=== PATIENT | female | born 1970 | race Two or more races ===

== ENCOUNTER 2025-02-01 08:29 | Emergency (ER) | payer MEDICAID, SELFPAY ==
[2025-02-01 08:30] VITALS: BP 96/61; PULSE 62; RESP 16; TEMP 36.7; O2SAT 98
[2025-02-01 08:45] VITALS: BP 97/65; PULSE 64; RESP 17; TEMP 36.7; O2SAT 99
[2025-02-01 08:49] VITALS: PULSE 62; RESP 18; O2SAT 95; BMI 23.0
--- NOTE | 2025-02-01 08:55 | EDNOTE_ITS ---
ED Syncope RME/HPI General Chief Complaint: Syncope / Near Syncope Stated Complaint: SYNCOPE Time Seen by Provider: 02/01/25 08:44 Arrival date/time: 02/01/25 08:29 RME / HPI RME / HPI narrative: 54 year old female presents to the ED BIBA from work for evaluation after syncopal episode today. States she was standing at work when she suddenly began to feel ill and sat down on a chair. Says she doesn't recall what occurred after sitting and then woke up being surrounded by coworkers who told her she lost consciousness, unknown duration. States yesterday she had a cough and felt feverish. However, did not measure temperature at home. While in the ED complains of a frontal headache. Denies any history of similar syncopal episodes. Denies chest pain, cough, shortness of breath. Denies nausea, vomiting, diarrhea, constipation. Denies dysuria, urinary frequency and urgency. Related Data Allergies Allergy/AdvReac Type Severity Reaction Status Date / Time NKA Allergy Unknown Uncoded 05/16/03 21:42 Review of Systems Review of Systems Narrative Review of Systems: GEN: +feverish in the last 24 hours, no weight loss, +syncopal episode EYES: No discharge, no visual changes, no pain HEENT: No ear pain, no congestion, no sore throat PULM: No shortness of breath, + cough CV: No chest pain, no palpitations GI: No nausea, no vomiting, no diarrhea, no pain, no constipation : No frequency, no urgency, no dysuria MUSC/SKEL: No joint pain, no back pain SKIN: No rash NEURO: No weakness, no headache Past Medical History Past Medical History CARDIAC: Negative Congestive Heart Failure RESPIRATORY: Negative Chronic Obstructive Pulmonary Disease (COPD) GENITOURINARY: Negative Renal Disease ENDOCRINE: Negative Diabetes Mellitus Type 1 or Diabetes Mellitus Type 2 ED Exam Narrative Physical exam: GENERAL APPEARANCE: alert and oriented x 4, well-developed, well-nourished, no acute distress HEENT: Normocephalic, atraumatic; pupils equal, round, reactive to light; EOMI; mucous membranes pink, moist; oropharynx clear NECK: Supple LUNGS: CTABL; no wheezes, no rales, no rhonchi HEART: Regular rate, regular rhythm; normal S1, S2; no murmurs ABDOMEN: non distended; normal BS; soft, no tenderness, no guarding, no rebound; no masses, no organomegaly, no hernia BACK: no CVA tenderness EXTREMITIES: atraumatic; no edema NEUROLOGIC: awake; alert and oriented x4; cranial nerves II-XII grossly intact; no focal sensory or motor deficits PSYCHIATRIC: appropriate mood and affect SKIN: warm, dry, normal color; no rashes Course Quality Measures none Orders Category Date Time Status Bedside COVID-19 Antigen Test NOW Care 02/01/25 11:02 Active Bedside Influenza A&B Antigen Test NOW Care 02/01/25 11:02 Completed Turner Machine Operator NOW Care 02/01/25 09:25 Active EKG (ED ONLY) *Do not use* NOW Care 02/01/25 09:25 Completed Orthostatic Vitals NOW Care 02/01/25 11:52 Active EKG (ED Only) Stat Exams 02/01/25 09:25 Draft XR chest 1V portable Stat Exams 02/01/25 09:25 Completed B-Type Natriuretic Peptide Stat Lab 02/01/25 09:44 Completed CBC Stat Lab 02/01/25 09:44 Completed Comprehensive Metabolic Panel Stat Lab 02/01/25 09:44 Completed Lipase Stat Lab 02/01/25 09:44 Completed Magnesium Stat Lab 02/01/25 09:44 Completed Partial Thromboplastin Time Stat Lab 02/01/25 09:44 Completed Prothrombin Time with INR Stat Lab 02/01/25 09:44 Completed Troponin I Stat Lab 02/01/25 09:44 Completed Sodium Chloride 0.9% 1000 ml [Ns] 1,000 ml Med 02/01/25 09:26 Discontinued IV 999 mls/hr Vital Signs Vital signs: Vital Signs Temperature 98.1 F 02/01/25 08:30 Pulse Rate 62 02/01/25 08:30 Respiratory Rate 16 02/01/25 08:30 Blood Pressure 96/61 02/01/25 08:30 Pulse Oximetry (%) 98 02/01/25 08:30 Oxygen Delivery Method Room Air 02/01/25 08:30 Pulse ox is 99% on room air which is adequate. Syncope MDM Narrative MDM Narrative:: Brenna Molina am scribing for and in the presence of Dr. Mason. Patient data External records reviewed:: EMS form Clinical information provided by:: patient and EMS Social determinants that could affect healthcare access:: none Patient has the following chronic illnesses:: None reported How is presenting disease/condition affected by chronic disease/condition?: no chronic disease Evaluation data The following diagnostics were reviewed and interpreted by me:: lab results, radiology exam(s) and EKG tracing(s) (EKG @ 09: 47 am. Interpreted by me shows sinus rhythm, rate 63, RSR in V1 and V2, no STEMI. ) Lab and/or radiology exams considered but not ordered:: None Interpretation Summary: Ordering Physician: Mari Mason MD Date of Service: 02/01/25 Procedure(s): XR chest 1V portable Accession Number(s): [id number] cc: Niko Rodriguez MD; Eliseo Choi MD; Mari Mason MD~ Examination: AP chest single view Technique one AP portable upright chest single view Exam date and time: February 01, 2025 0937 hours INDICATIONS: Chest pain today. FINDINGS: Normal heart size Lungs are clear. The osseous structures are intact IMPRESSION: No active disease Dictated By:Eliseo Choi MD Signed By:<Electronically signed by Eliseo Choi MD in [place]>02/01/25 0947 Medications / Prescriptions Medications or Prescriptions considered but not ordered:: None Medication administrations:: Medication Administration History Discontinued Medications Sodium Chloride (Ns) 1,000 mls @ 999 mls/hr IV .Q1H1M ONE Stop: 02/01/25 10:26 Last Infusion: 02/01/25 11:43 Dose: Infused Documented By: Admin: 02/01/25 09:52 Dose: 999 mls/hr Documented By: See above Consultations Consultation(s) initiated? (list below): No Diagnosis Syncope Differential Diagnosis: syncope due to orthostatic hypotension, vasovagal syncope and dehydration Most likely diagnosis given after review of the tests above:: Syncope Admission Indicated Admission indicated?: not indicated Explain why admission is indicated or not indicated:: Does not meet admission criteria Admission Request Was there a request for admission?: No Disposition Plan Disposition Plan: Discharge Discharge Attestation Discharge Attestation: The patient and all family members were given an opportunity to ask questions and understood the discharge instructions. Discharge instructions specifically effects, indications for sooner follow up or return to the emergency department, and the expected course of current diagnosis. Patient condition: Stable Discharge Plan Plan Patient Disposition: HOME (Self Care) Prescriptions/Referrals Referrals: Niko Rodriguez MD [Primary Care Provider] - In 1 week Problem List Clinical Impression: Syncope Patient/Caregiver Discharge Instructions Education Materials: ED Fainting, Uncertain Cause Print Language: Filipino Stand Alone Forms: [facility] Award Info., Patient Portal Info Letter
--- NOTE | 2025-02-01 09:25 | XR_ITS ---
Examination: AP chest single view Technique one AP portable upright chest single view Exam date and time: February 01, 2025 0937 hours INDICATIONS: Chest pain today. FINDINGS: Normal heart size Lungs are clear. The osseous structures are intact IMPRESSION: No active disease
--- NOTE | 2025-02-01 09:25 | EKG_ITS ---
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
[2025-02-01] MEDS: SODIUM CHLORIDE 0.9% 1000 ML 1,000 ML 999 ML IV (09:52)
[2025-02-01 09:53] LABS: Basophils % (Auto) 1 % (0-2.5); Eosinophils % (Auto) 0 % (0-10); Hematocrit 32.7 % (36.0-46.0); Hemoglobin 11.6 g/dL (12.0-16.0); Immature Granulocytes % (Auto) 1 % (0-0); Immature Granulocytes Auto 0.03 Thou/mm3 (0.00-0.00); Lymphocytes # (Auto) 1.7 Thou/mm3 (1.0-4.8); Lymphocytes % (Auto) 25 % (10-50); Mean Corpuscular HGB Conc 35.5 g/dl (31.0-37.0); Mean Corpuscular Hemoglobin 31.2 pg (25.0-35.0); Mean Corpuscular Volume 88 fL (80-100); Monocytes # (Auto) 0.5 Thou/mm3 (0.0-0.8); Monocytes % (Auto) 7 % (0-12); Neutrophils # (Auto) 4.4 Thou/mm3 (1.8-7.7); Neutrophils % (Auto) 67 % (37-80); Nucleated Red Blood Cell % 0 /100 WBC (0); Platelet Count 210 Thou/mm3 (140-440); RDW Standard Deviation 40.1 fL (36.4-46.3); Red Blood Count 3.72 Miln/mm3 (4.00-5.20); White Blood Count 6.6 Thou/mm3 (3.6-11.0)
[2025-02-01 09:54] VITALS: PULSE 62
[2025-02-01 10:04] LABS: INR 1.1 (0.9-1.3); Partial Thromboplastin Time 23.4 Seconds (22.0-36.0); Prothrombin Time 11.7 Seconds (9.0-12.2)
[2025-02-01 10:08] LABS: B-Type Natriuretic Peptide 25 pg/mL (0-100)
[2025-02-01 10:10] LABS: Alanine Aminotransferase 21 U/L (10-49); Albumin, Serum 4.5 gm/dL (3.5-5.0); Albumin/Globulin Ratio 1.7 (1.2-2.2); Alkaline Phosphatase 106 U/L (46-116); Anion Gap 8 (7-16); Aspartate Amino Transferase 18 U/L (0-34); BUN/Creatinine Ratio 16 Ratio (12-20); Bilirubin,Total 0.8 mg/dL (0.3-1.2); Blood Urea Nitrogen 13 mg/dL (9-23); Calcium 9.5 mg/dL (8.3-10.6); Calcium (Corrected) 9.5 mg/dL (8.5-10.1); Carbon Dioxide 24.4 mMol/L (20.0-31.0); Chloride 109 mMol/L (98-107); Creatinine (Component) 0.8 mg/dL (0.6-1.3); Estimated Creatinine Clearance 67.3 mL/min (>60); Globulin 2.6 gm/dL (2.3-3.5); Glucose 157 mg/dL (74-106); Lipase 30 U/L (12-53); Magnesium 1.8 mg/dL (1.6-2.6); Osmolality,Calculated 284 (275-295); Potassium 4.1 mMol/L (3.4-5.1); Sodium 141 mMol/L (136-145); Total Protein 7.1 gm/dL (5.7-8.2); Troponin I < 0.002 ng/mL (0.0-0.045); eGFR > 60 See Note
[2025-02-01 10:19] VITALS: BP 118/74; PULSE 72; RESP 16; TEMP 36.7; O2SAT 100
[2025-02-01 11:52] VITALS: BP 108/78; BP 113/65; BP 115/73; PULSE 69; PULSE 73; PULSE 74
== END 2025-02-01 14:06 | disposition home or self-care (01) ==
PROVIDERS: Emergency Provider Emergency Medicine; PCP Family Medicine
DX: R55 Syncope and collapse (principal)
CPT/HCPCS: 36415; 71045; 80053; 83690; 83735; 83880; 84484; 85025; 85610; 85730; 87400; 87811; 93005; 96360; 96361; 99284; J7030